=== PATIENT | female | born 1985 | race Caucasian/White ===

== ENCOUNTER 2019-02-06 14:01 | Emergency (ER) | payer BC ==
[~2019-02-06] VITALS: Ht 152.4 cm; Wt 83.9 kg
[2019-02-06 14:06] VITALS: BP 116/69
[2019-02-06 16:00] VITALS: BP 124/72
== END 2019-02-06 16:00 | disposition home or self-care (01) ==
LOC: MED 14:01
DX: S90.31XA Contusion of right foot, initial encounter (principal); Z88.5 Allergy status to narcotic agent; W20.8XXA Other cause of strike by thrown, projected or falling object, initial encounter; Y93.89 Activity, other specified; Y92.89 Other specified places as the place of occurrence of the external cause; Y99.8 Other external cause status
CPT/HCPCS: 73630; 99283; Q0092